=== PATIENT | male | born 1975 | race Caucasian/White ===

== ENCOUNTER 2025-09-07 08:28 | Outpatient (REF) | payer BC, SELFPAY ==
--- NOTE | 2025-09-07 | EMG_ITS ---
Chief complaint: Right hand pain / numbness Reason for referral: G56.03 CTS right hand numbness fingers Referred by: Bryon Vivar MD Procedure done: NCS right upper extremity, EMG right paraspinals Right median and ulnar motor studies were performed, right median and ulnar mixed sensory studies, radial sensory and median and lateral antecubital brachial sensory studies were performed. Needle examination was performed. Right median distal motor latency was moderately prolonged. Right ulnar conduction velocity was moderately slowed across elbow. Right median mixed distal latency was moderately prolonged with conduction velocity in 20s. Otherwise no abnormality was noted. Impression: 1. 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 Mild right ulnar neuropathy across cubital tunnel MTDD
== END 2025-09-07 08:29 | disposition home or self-care (01) ==
LOC: HO.NEURO 08:28
PROVIDERS: PCP Internal Medicine; Visit Provider Internal Medicine Rheumatology
DX: G56.03 Carpal tunnel syndrome, bilateral upper limbs (principal); M79.641 Pain in right hand; R20.2 Paresthesia of skin
CPT/HCPCS: 95886; 95910

== ENCOUNTER → 2025-09-07 08:31 | Outpatient (BNV) | payer BC, SELFPAY | PROVIDERS: PCP Internal Medicine; Visit Provider Psychiatry & Neurology Neurology | DX: G56.01 Carpal tunnel syndrome, right upper limb (principal) | CPT/HCPCS: 95886; 95909 ==